=== PATIENT | male | born 1980 | race Two or more races ===

== ENCOUNTER 2017-03-13 09:57 | Emergency (ER) | payer OTHER ==
[~2017-03-13] VITALS: Ht 193 cm; Wt 158.8 kg
[~2017-03-13 09:57] MED LIST: LEVO-28 PO; LISI-646 PO; METR500T PO
[2017-03-13 11:04] VITALS: BP 133/74
[2017-03-13] MEDS ORDERED: diphenhdrAMINE HCL 25 MG CAP PO ONE (11:30)
[2017-03-13] MEDS ORDERED: cefTRIAXone SOD 1,000 MG VL IM ONE (11:30)
[2017-03-13] MEDS ORDERED: methylPREDNISolone SOD SUCC 125 MG/2 ML VL IM ONE (11:30)
== END 2017-03-13 12:00 | disposition home or self-care (01) ==
LOC: ER 09:57
DX: H02.846 Edema of left eye, unspecified eyelid (principal); I10 Essential (primary) hypertension; F17.210 Nicotine dependence, cigarettes, uncomplicated; Z87.440 Personal history of urinary (tract) infections; Z91.013 Allergy to seafood
CPT/HCPCS: 96372; 99284; J0696; J2930

== ENCOUNTER 2021-01-05 20:44 | Emergency (ER) | payer OTHER ==
[~2021-01-05] VITALS: Ht 190.5 cm; Wt 170.1 kg
[~2021-01-05 20:44] MED LIST changes: -LISI-646 PO; +LISI20TA28 PO
[2021-01-05 22:46] LABS: Basophils # (auto) 0.1 10 ^3/uL (0-0.2); Basophils % (auto) 0.7 % (0.0-2.0); Eosinophils # (auto) 0.1 10 ^3/uL (0-0.8); Eosinophils % (auto) 1.1 % (0.0-7.0); Hematocrit 44.8 % (41.0-53.0); Hemoglobin 15.2 g/dL (13.5-17.5); Lymphocytes # (auto) 2.8 10 ^3/uL (0.4-5.4); Lymphocytes % (auto) 24.6 % (10.0-50.0); Mean Corpuscular Hemoglobin 28.1 pg (28.0-32.0); Mean Corpuscular Hgb Conc. 33.8 g/dL (32.0-36.0); Mean Corpuscular Volume 83.1 fL (80.0-100.0); Monocytes # (auto) 0.7 10 ^3/uL (0-1.3); Monocytes % (auto) 6.2 % (0.0-12.0); Neutrophils # (auto) 7.5 10 ^3/uL (1.6-8.6); Neutrophils % (auto) 67.4 % (37.0-80.0); Nucleated Red Blood Cells % 0.1 %; Platelet Count (auto) 307 10^3/uL (140-450); Red Blood Cells 5.39 10^6/uL (4.5-5.90); Red Cell Distribution Width 13.5 % (11.8-14.3); White Blood Cell 11.2 10^3/uL (4.4-10.8)
[2021-01-05 23:05] LABS: Chloride 108 mmol/L (98-107); Potassium 3.8 mmol/L (3.5-5.1); Sodium 140 mmol/L (136-145)
[2021-01-05 23:11] LABS: Alanine Aminotransferase 36 U/L (16-61); Albumin 3.8 g/dL (3.4-5.0); Anion Gap 4 (5-15); Aspartate Aminotransferase 16 U/L (15-37); BUN/Creatinine Ratio 15.9; Bilirubin, Total 0.4 mg/dL (0.2-1.0); Blood Urea Nitrogen 14 mg/dL (7-18); Calcium 9.3 mg/dL (8.5-10.1); Carbon Dioxide 28 mmol/L (21-32); GFR African American 123 mL/min; GFR Non-African American 101 mL/min; Glucose 99 mg/dL (74-106); Total Protein 7.7 g/dL (6.4-8.2)
[2021-01-05 23:16] LABS: Alkaline Phosphatase 63 U/L (45-117)
[2021-01-06] MEDS ORDERED: KETOROLAC TROMETH 30 MG/ML 1ML VIAL IV ONE (02:00)
[2021-01-06] MEDS ORDERED: ACETAMINOPHEN 325 MG TAB PO ONE (02:00)
[2021-01-06] MEDS ORDERED: SODIUM CHLORIDE 0.9% 1,000 ML IV ONE (02:00)
[2021-01-06] MEDS ORDERED: METOCLOPRAMIDE HCL 5MG/ml INJ 2ml VIAL IV ONE (02:00)
[2021-01-06 06:19] VITALS: BP 135/85
== END 2021-01-06 08:12 | disposition home or self-care (01) ==
LOC: ER 20:46
DX: R07.89 Other chest pain (principal); E11.9 Type 2 diabetes mellitus without complications; F17.210 Nicotine dependence, cigarettes, uncomplicated; Z79.2 Long term (current) use of antibiotics; Z79.899 Other long term (current) drug therapy; Z88.5 Allergy status to narcotic agent; Z91.013 Allergy to seafood
CPT/HCPCS: 36415; 71045; 80053; 83880; 84484; 85025; 85049; 93005; 96361; 96374; 96375; 99285; J1885; J2765; J7030

== ENCOUNTER 2022-01-13 03:43 | Emergency (ER) | payer OTHER ==
[~2022-01-13] VITALS: Ht 182.9 cm; Wt 174.6 kg
[2022-01-13] MEDS ORDERED: cefTRIAXone SOD 1,000 MG VL IM ONE (08:30)
[2022-01-13] MEDS ORDERED: LIDOCAINE 1% HCL (LOCAL ANESTH.) INJ 20ML MDV IJ ONE (08:45)
[2022-01-13 08:52] VITALS: BP 122/84
[2022-01-13] MEDS ORDERED: AZIT500T66 PO (08:58)
[2022-01-13] MEDS ORDERED: IBUP800T27 PO (08:58)
[2022-01-13] MEDS ORDERED: PROM1SOL4 PO (08:58)
== END 2022-01-13 09:20 | disposition home or self-care (01) ==
LOC: ER 03:43
DX: J20.9 Acute bronchitis, unspecified (principal); J03.90 Acute tonsillitis, unspecified; E11.9 Type 2 diabetes mellitus without complications; F17.210 Nicotine dependence, cigarettes, uncomplicated
CPT/HCPCS: 71046; 96372; 99283; J0696; J2001